=== PATIENT | male | born 1990 | race Caucasian/White ===

== ENCOUNTER 2017-04-30 10:52 | Emergency (ER) | payer BC ==
[~2017-04-30] VITALS: Ht 175.3 cm; Wt 81.6 kg
--- NOTE | 2017-04-30 10:55 | Emergency Room Report ---
History of Present Illness Time Seen by [id number] Presenting Problem in Triage Pt arrived:Walked Presenting Problem:PT REPORTS PAIN AND SWELLING IN L THUMB X2 DAYS, REPORTS INJURY WHILE PLAYING BASEBALL. 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 N Clinical Suspician of Infection? N Mental Status: 1 - Regular (Normal Baseline) Sepsis Risk:Low Sepsis Risk Have you (or family members/close friends) recently traveled outside the [place]? N If Yes, where/when: Have you had exposure to infectious disease within the past month? N TB? Other? Specify: Source patient, RN notes reviewed Exam Limitations no limitations Comment Pt hurt left thumb 2 days ago playing baseball. ALLERGIES Coded Allergies: No Known Allergies (07/23/16) Home Medications Reported Medications No Known Home Medications History Medical History General CAD? No Angina: No [place]: No Hypertension? No Hyperlipidemia? No CHF? No DVT? No PE? No COPD? No Asthma? No Anemia? No GERD? No Gastric ulcers? No GI Bleed? No Hernia? No Thyroid Problems? No Hypothyroidism? No CVA? No Seizures? No Diabetes? No Renal Insuffiency? No End Stage Renal Disease? No UTI? No Stones? No BPH? No GB Disease: No Nephritic Syndrome? No Asplenia? No Hepatitis? No Sickle Cell Disease? No Arthritis? No Migraines? No Cataracts? No Glaucoma? No MRSA? No HIV? No TB? No Anxiety? No Depression? No Cancer? No More? No Immunization Hx DT/Tetanus 1-4 YRS Surgical Hx Previous Surgery?Y VENTRICULAR SHUNT Social History Smoking Hx Packs/day < 1 Pack Alcohol Alcohol: No Review of Systems All Other Systems Reviewed and Negative Musculoskeletal see HPI Physical Exam Vital Signs Vital Signs Date Time Temp Pulse Resp B/P Pulse O2 O2 Flow FiO2 Ox Delivery Rate 04/30 1059 98.1 86 18 132/82 99 General Appearance normal appearance, WD/WN, no apparent distress Respiratory Status No: respiratory distress. Lung Sounds bilateral: normal breath sounds. 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 Yes Keny was queried for this patient? Yes Reference #: [id number] Risks/benefits of using a controlled substance for treatment were not discussed w/pt Results/Orders Orders Procedure Date/time Status [id number] (THUMB)-3 VIEWS 04/30 1107 Active XRAY/CT/US XRAY/CT/US XRAY thumb XR interpretation by reviewed by me Xray Results fracture of distal phalanx Procedures Orthopedic/Inj/Splint Ortho Proc/Injections/Splints Risks/benefits discussed with pt/guardian? Yes IV conscious sedation No Procedural sedation none Reduction of other Location other (THumb fracture) Comment Thumb spica splint Post reduction xrays completed and anatomic No Pre-Made Type orthoglas Hand-Made Type orthoglass Splint thumb spica Pre-Proc Neuro Vasc Exam normal Post-Proc Neuro Vasc Exam normal Complications none Departure Departure Time of Disposition 1154 Disposition DC Home or Self Care(routine) Clinical Impression Primary Impression: Fracture of distal phalanx of thumb Qualifiers: Encounter type: initial encounter Fracture type: closed Fracture alignment: nondisplaced Laterality: left Qualified Code: S62.525A - Nondisplaced fracture of distal phalanx of left thumb, initial encounter for closed fracture Condition STABLE Referrals BARBARA CLEMENT, VIVIEN HACKETT Additional Instructions Followup with Dr. Almanza in 2 to 3 days to re-evaluate Discharge Counseling Counseled pt/family regarding diagnosis, test results, medications/RX, home care, follow up needs Prescriptions Current Visit Scripts HYDROCODONE 5MG/APAP 325MG (Hydrocodon-Acetaminophen 5-325) 1 TAB PO Q4HP PRN pain #18 TAB ED Critical Care Critical Care No If Critical Care minutes are documented, the time involved in the performance of seperately reportable procedures was not counted toward critical care time documented. I directly delivered medical care to this critically ill and/or injured patient. Timely evaluation and treatment was necessary to address the significant organ system(s) dysfunction present in this patient. at 1156
--- NOTE | 2017-04-30 10:55 | Emergency Room Report ---
History of Present Illness Time Seen by 1054 Presenting Problem in Triage Pt arrived:Walked Presenting Problem:PT REPORTS PAIN AND SWELLING IN L THUMB X2 DAYS, REPORTS INJURY WHILE PLAYING BASEBALL. 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 N Clinical Suspician of Infection? N Mental Status: 1 - Regular (Normal Baseline) Sepsis Risk:Low Sepsis Risk Have you (or family members/close friends) recently traveled outside the [place]? N If Yes, where/when: Have you had exposure to infectious disease within the past month? N TB? Other? Specify: Source patient, RN notes reviewed Exam Limitations no limitations Comment Pt hurt left thumb 2 days ago playing baseball. ALLERGIES Coded Allergies: No Known Allergies (07/23/16) Home Medications Reported Medications No Known Home Medications History Medical History General CAD? No Angina: No [place]: No Hypertension? No Hyperlipidemia? No CHF? No DVT? No PE? No COPD? No Asthma? No Anemia? No GERD? No Gastric ulcers? No GI Bleed? No Hernia? No Thyroid Problems? No Hypothyroidism? No CVA? No Seizures? No Diabetes? No Renal Insuffiency? No End Stage Renal Disease? No UTI? No Stones? No BPH? No GB Disease: No Nephritic Syndrome? No Asplenia? No Hepatitis? No Sickle Cell Disease? No Arthritis? No Migraines? No Cataracts? No Glaucoma? No MRSA? No HIV? No TB? No Anxiety? No Depression? No Cancer? No More? No Immunization Hx DT/Tetanus 1-4 YRS Surgical Hx Previous Surgery?Y VENTRICULAR SHUNT Social History Smoking Hx Packs/day < 1 Pack Alcohol Alcohol: No Review of Systems All Other Systems Reviewed and Negative Musculoskeletal see HPI Physical Exam Vital Signs Vital Signs Date Time Temp Pulse Resp B/P Pulse O2 O2 Flow FiO2 Ox Delivery Rate 04/30 1059 98.1 86 18 132/82 99 General Appearance normal appearance, WD/WN, no apparent distress Respiratory Status No: respiratory distress. Lung Sounds bilateral: normal breath sounds. 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 Yes Keny was queried for this patient? Yes Reference #: [id number] Risks/benefits of using a controlled substance for treatment were not discussed w/pt Results/Orders Orders Procedure Date/time Status [id number] (THUMB)-3 VIEWS 04/30 1107 Active XRAY/CT/US XRAY/CT/US XRAY thumb XR interpretation by reviewed by me Xray Results fracture of distal phalanx Procedures Orthopedic/Inj/Splint Ortho Proc/Injections/Splints Risks/benefits discussed with pt/guardian? Yes IV conscious sedation No Procedural sedation none Reduction of other Location other (THumb fracture) Comment Thumb spica splint Post reduction xrays completed and anatomic No Pre-Made Type orthoglas Hand-Made Type orthoglass Splint thumb spica Pre-Proc Neuro Vasc Exam normal Post-Proc Neuro Vasc Exam normal Complications none Departure Departure Time of Disposition 1154 Disposition DC Home or Self Care(routine) Clinical Impression Primary Impression: Fracture of distal phalanx of thumb Qualifiers: Encounter type: initial encounter Fracture type: closed Fracture alignment: nondisplaced Laterality: left Qualified Code: S62.525A - Nondisplaced fracture of distal phalanx of left thumb, initial encounter for closed fracture Condition STABLE Referrals BARBARA CLEMENT, VIVIEN HACKETT Additional Instructions Followup with Dr. Almanza in 2 to 3 days to re-evaluate Discharge Counseling Counseled pt/family regarding diagnosis, test results, medications/RX, home care, follow up needs Prescriptions Current Visit Scripts HYDROCODONE 5MG/APAP 325MG (Hydrocodon-Acetaminophen 5-325) 1 TAB PO Q4HP PRN pain #18 TAB ED Critical Care Critical Care No If Critical Care minutes are documented, the time involved in the performance of seperately reportable procedures was not counted toward critical care time documented. I directly delivered medical care to this critically ill and/or injured patient. Timely evaluation and treatment was necessary to address the significant organ system(s) dysfunction present in this patient. at 1156
[2017-04-30 12:01] VITALS: BP 128/80
--- NOTE | 2017-04-30 14:47 | RADIOLOGY REPORT PS360 ---
[id number] (THUMB)-3 VIEWS HISTORY: INJURY 2 DAYS AGO, PAIN, SWELLING jammed finger playing baseball pain distal finger Patient Age: 26 years: Male Ordering Physician: Roya Plaza MD TECHNIQUE: 3 views left thumb COMPARISON :None FINDINGS Lateral view nicely demonstrates the longitudinal fracture extending through articular cortex/surface here at the base of distal phalanx.... This Nondisplaced fracture extends to the IP joint of thumb but would there is no cortical step-off appreciated. The fracture and not really apparent on the frontal view nor oblique view but is clearly evident & seen on lateral view of thumb. There is diffuse soft tissue swelling at the left lung. Proximal phalanx unremarkable. First metacarpal unremarkable. IMPRESSION: -= 1. Nondisplaced fracture at base of distal phalanx, with articular extension. Left thumb . On today's lateral view this nondisplaced longitudinal fracture line clearly seen, passing through the mid articular cortex at base of distal phalanx thumb. It likely extends obliquely through the proximal metaphysis.
--- OUTSIDE RECORDS SUMMARY | 2017-05-10 21:14 | External Medical Summary Rpt ---
Author Author , DANICA MISHRA Address Unknown Phone [email or web address] Care Team Providers Care Deputy Building Guard Name Role Phone [employer], Unavailable Unavailable [employer] [facility] Unavailable Unavailable IM[facility]ING [facility], [facility] [employer], Unavailable Unavailable [facility] [employer] [facility], [employer] [facility], Unavailable Unavailable [facility] Unavailable Unavailable [facility], [facility] Unavailable Unavailable PHARMACY, [facility] BERNIE PADGETT, Unavailable Unavailable BERNIE PADGETT Purpose Continuity of Care Document - 10-22-2007 through 2016 Problems Code Diagnosis DOS Provider Status 3319 UNSPECIFIED 02-07-2012 [place] [facility] [place] [place] [place] N [address] OTHER 02-07-2012 [place] CONDITIONS [facility]ICAL OF BRAIN IM[facility]ING ASS 2590 DELAY IN 03-17-2008 [facility] PUB[facility] NEC 63985 SHORT 03-17-2008 [facility] STATURE [facility] V1581 PERS HX 03-17-2008 [place] [facility]PL[facility] CE W/MED TX ENDOCRINOLO PRS [facility] Medications Na ND Rx Da Fi Fi Am Da Di Ph RX Ph St me C No te ll ll ou ys ag ar # ys at rm s nt no ma ic us Or Da si cy ia de te s n re d LE 00 01 10 07 30 30 WA 69 FO Ac VO 37 -1 -0 .0 L- 56 ST ti TH 81 1- 9- 00 MA 26 ER ve YR 80 20 20 RT 5 OX 70 08 08 MT IN 1 PH CH E AR AE 88 MA L CY MC G #5 TA 91 BL ET GE 00 03 10 05 10 30 WA 13 FO Ac NO 01 -0 -[address] ti TR 32 5- 9- 00 RE 9 ER ve OP 64 20 20 EN IN 68 08 08 S MT 1 IN CH 12 FU AE SI L MG ON B CA PH RT AR RI MA DG CY E LE 00 01 08 06 30 30 WA 69 FO Ac VO 37 -1 -2 .0 L- 56 ST ti TH 81 1- 8- 00 MA 26 ER ve YR 80 20 20 RT 5 OX 70 08 08 MT IN 1 PH CH E AR AE 88 MA L CY MC G #5 TA 91 BL ET GE 00 03 08 04 10 30 WA 13 FO Ac NO 01 -0 -[address] ti TR 32 5- 8- 00 RE 9 ER ve OP 64 20 20 EN IN 68 08 08 S MT 1 IN CH 12 FU AE SI L MG ON B CA PH RT AR RI MA DG CY E LE 00 01 08 05 30 30 WA 69 FO Ac VO 37 -1 -0 .0 L- 56 ST ti TH 81 1- 1- 00 MA 26 ER ve YR 80 20 20 RT 5 OX 70 08 08 MT IN 1 PH CH E AR AE 88 MA L CY MC G #5 TA 91 BL ET GE 00 03 07 03 10 30 WA 13 FO Ac NO 01 -0 -[address] ti TR 32 5- 7- 00 RE 9 ER ve OP 64 20 20 EN IN 68 08 08 S MT 1 IN CH 12 FU AE SI L MG ON B CA PH RT AR RI MA DG CY E LE 00 01 07 04 30 30 WA 69 No Ac VO 37 -1 -0 .0 L- 56 t ti TH 81 1- 3- 00 MA 26 Av ve YR 80 20 20 RT 5 ai OX 70 08 08 la IN 1 PH bl E AR e 88 MA CY MC G #5 TA 91 BL ET GE 00 03 06 02 10 30 WA 13 FO Ac NO 01 -0 -[address] ti TR 32 5- 5- 00 RE 9 ER ve OP 64 20 20 EN IN 68 08 08 S MT 1 IN CH 12 FU AE SI L MG ON B CA PH RT AR RI MA DG CY E LE 00 01 05 03 30 30 WA 69 No Ac VO 37 -1 -2 .0 L- 56 t ti TH 81 1- 2- 00 MA 26 Av ve YR 80 20 20 RT 5 ai OX 70 08 08 la IN 1 PH bl E AR e 88 MA CY MC G #5 TA 91 BL ET GE 00 03 04 01 10 30 WA 13 No Ac NO 01 -0 -2 .0 LG 02 t ti TR 32 5- 4- 00 RE 9 Av ve OP 64 20 20 EN ai IN 68 08 08 S la 1 IN bl 12 FU e SI MG ON CA PH RT AR RI MA DG CY E GE 00 03 04 00 10 30 WA 13 No Ac NO 01 -0 -1 .0 LG 02 t ti TR 32 5- 7- 00 RE 9 Av ve OP 64 20 20 EN ai IN 68 08 08 S la 1 IN bl 12 FU e SI MG ON CA PH RT AR RI MA DG CY E LE 00 01 04 02 30 30 WA 69 No Ac VO 37 -1 -1 .0 L- 56 t ti TH 81 1- 0- 00 MA 26 Av ve YR 80 20 20 RT 5 ai OX 70 08 08 la IN 1 PH bl E AR e 88 MA CY MC G #5 TA 91 BL ET LE 00 01 04 01 30 30 WA 69 No Ac VO 37 -1 -0 .0 L- 56 t ti TH 81 1- 7- 00 MA 26 Av ve YR 80 20 20 RT 5 ai OX 70 08 08 la IN 1 PH bl E AR e 88 MA CY MC G #5 TA 91 BL ET LE 00 01 03 00 30 30 WA 69 No Ac VO 37 -1 -2 .0 L- 56 t ti TH 81 1- 5- 00 MA 26 Av ve YR 80 20 20 RT 5 ai OX 70 08 08 la IN 1 PH bl E AR e 88 MA CY MC G #5 TA 91 BL ET GE 00 08 03 03 9. 30 CA 10 No Ac NO 01 -2 -2 00 RE 10 t ti TR 32 7- 4- 0 MA 03 Av ve OP 64 20 20 RK 6 ai IN 68 07 08 la 1 IN bl 12 C e IN MG C CA RT RI DG E Procedures Procedure DOS Code Location Performer Comment 3D 73152 [facility] RENDERING 2 MEDICAL MEDICAL W/INTERP IMAGING IMAGING & ASS ASS POSTPROCE SS SUPERVISI ON IMMUNOASS 31791 [facility] [place] [address] [facility] OF LABONE OF FREE 8 [facility] [place] [address] LABONE OF LABONE OF THYROID 8 [facility] [place] [address] [facility] 8 DIAGNOSTI DIAGNOSTI IN CS IN CS IN Encounters Encounter Start End Date Code Location Performer Type Date OFFICE 00267 [facility] LEANN PADGETT 8 8 Y BERNIE Ordoñez VISIT PEDIATRIC 15 MINUTES [facility]
--- OUTSIDE RECORDS SUMMARY | 2017-05-10 21:14 | External Medical Summary Rpt ---
Author Author , DANICA MCGILLJETHRO Address Unknown Phone [email or web address] Care Team Providers Care Thread Laster Name Role Phone [employer], Unavailable Unavailable [employer] [facility] Unavailable Unavailable IM[facility]ING [facility], [facility] [employer] [facility], Unavailable Unavailable [facility] [employer] [facility] Un[facility] Unavailable [facility], [facility], Unavailable Unavailable [facility]available Unavailable #591, [facility] Unavailable Unavailable PHARMACY, [facility] BERNIE PADGETT, Unavailable Unavailable BERNIE PADGETT Purpose Continuity of Care Document - 10-22-2007 through 2016 Problems Code Diagnosis DOS Provider Status 3319 UNSPECIFIED 02-07-2012 [facility] [facility] DEGENERATIO IMAGING ASS N 46156 OTHER 02-07-2012 [place] [facility] OF BRAIN IMAGING ASS 2590 DELAY IN 03-17-2008 [facility] AND PUBERTY NEC 70095 SHORT 03-17-2008 [facility] V1581 PERS HX 03-17-2008 [place] [facility] CE W/MED TX ENDOCRINOLO PRS [...] 20 RT 5 OX 70 08 08 ME IN 1 PH CH E AR AE 88 MA L CY MC G #5 TA 91 BL ET GE 00 03 10 05 10 30 WA 13 FO Ac NO 01 -0 -[address] ti TR 32 5- 9- 00 RE 9 ER ve OP 64 20 20 EN IN 68 08 08 S ME 1 IN CH 12 FU AE SI L MG ON B CA PH RT AR RI MA DG CY E GE 00 03 08 04 10 30 WA 13 FO Ac NO 01 -0 -[address] ti TR 32 5- 8- 00 RE 9 ER ve OP 64 20 20 EN IN 68 08 08 S ME 1 IN CH 12 FU AE SI L MG ON B CA PH RT AR RI MA DG CY E LE 00 01 08 06 30 30 WA 69 FO Ac VO 37 -1 -2 .0 L- 56 ST ti TH 81 1- 8- 00 MA 26 ER ve YR 80 20 20 RT 5 OX 70 08 08 ME IN 1 PH CH E AR AE 88 MA L CY MC G #5 TA 91 BL ET LE 00 01 08 05 30 30 WA 69 FO Ac VO 37 -1 -0 .0 L- 56 ST ti TH 81 1- 1- 00 MA 26 ER ve YR 80 20 20 RT 5 OX 70 08 08 ME IN 1 PH CH E AR AE 88 MA L CY MC G #5 TA 91 BL ET GE 00 03 07 03 10 30 WA 13 FO Ac NO 01 -0 -[address] ti TR 32 5- 7- 00 RE 9 ER ve OP 64 20 20 EN IN 68 08 08 S ME 1 IN CH 12 FU AE SI [...] 20 EN IN 68 08 08 S ME 1 IN CH 12 FU AE SI [...] Procedure DOS Code Location Performer Comment 3D [address] [facility] 2 MEDICAL MEDICAL W/INTERP IMAGING IMAGING & ASS [place] [address] [facility] 8 DIAGNOSTI DIAGNOSTI IN CS IN CS IN IMMUNOASS 14719 [facility] 8 [facility] [place] [address] [facility] OF [facility] OF FREE 8 [facility] [place] [address] LAB[facility] OF LABONE OF THYROID 8 [facility] STIMULATI NG HORMONE TSH Encounters Encounter Start End Date Code Location Performer Type Date OFFICE 14959 [facility] 8 8 Y BERNIE Ordoñez VISIT PEDIATRIC 15 MINUTES [facility]
--- OUTSIDE RECORDS SUMMARY | 2017-05-10 21:14 | External Medical Summary Rpt ---
Author Author , DANICA MISHRA Address Unknown Phone [email or web address] Care Team Providers Care Train Caller Name Role Phone [employer], Unavailable Unavailable [employer] [facility] Unavailable Unavailable IM[facility]ING [facility], [facility] [employer], Unavailable Unavailable [facility] [employer] [facility] Unavailable Unavailable [facility], [facility], Unavailable Unavailable [facility]available Unavailable #591, [facility] Unavailable Unavailable PHARMACY, [facility] BERNIE PADGETT, Unavailable Unavailable BERNIE PADGETT Purpose Continuity of Care Document - 10-22-2007 through 2016 Problems Code Diagnosis DOS Provider Status 3319 UNSPECIFIED 02-07-2012 [place] [facility] DEGENERATIO IMAGING ASS N 64939 OTHER 02-07-2012 [place] CONDITIONS [facility] OF BRAIN IMAGING ASS 2590 DELAY IN 03-17-2008 [facility] AND PUBERTY NEC 23252 SHORT 03-17-2008 [facility] V1581 PERS HX 03-17-2008 [place] NONCOMPLIAN PEDIATRIC CE W/MED TX ENDOCRINOLO PRS [...] 20 RT 5 OX 70 08 08 NH IN 1 PH CH E AR AE 88 MA L CY MC G #5 TA 91 BL ET GE 00 03 10 05 10 30 WA 13 FO Ac NO 01 -0 -[address] ti TR 32 5- 9- 00 RE 9 ER ve OP 64 20 20 EN IN 68 08 08 S NH 1 IN CH 12 FU AE SI L MG ON B CA PH RT AR RI MA DG CY E LE 00 01 08 06 30 30 WA 69 FO Ac VO 37 -1 -2 .0 L- 56 ST ti TH 81 1- 8- 00 MA 26 ER ve YR 80 20 20 RT 5 OX 70 08 08 NH IN 1 PH CH E AR AE 88 MA L CY MC G #5 TA 91 BL ET GE 00 03 08 04 10 30 WA 13 FO Ac NO 01 -0 -[address] ti TR 32 5- 8- 00 RE 9 ER ve OP 64 20 20 EN IN 68 08 08 S NH 1 IN CH 12 FU AE SI L MG ON B CA PH RT AR RI MA DG CY E LE 00 01 08 05 30 30 WA 69 FO Ac VO 37 -1 -0 .0 L- 56 ST ti TH 81 1- 1- 00 MA 26 ER ve YR 80 20 20 RT 5 OX 70 08 08 NH IN 1 PH CH E AR AE 88 MA L CY MC G #5 TA 91 BL ET GE 00 03 07 03 10 30 WA 13 FO Ac NO 01 -0 -[address] ti TR 32 5- 7- 00 RE 9 ER ve OP 64 20 20 EN IN 68 08 08 S NH 1 IN CH 12 FU AE SI [...] 20 EN IN 68 08 08 S NH 1 IN CH 12 FU AE SI [...] Procedure DOS Code Location Performer Comment 3D 12723 [facility] RENDERING 2 MEDICAL MEDICAL W/INTERP IMAGING IMAGING & ASS ASS POSTPROCE SS SUPERVISI ON IMMUNOASS 73778 [facility] 8 [facility] [place] [address] [facility] FREE 8 [facility] [address] LAB[facility] OF LABONE OF THYROID 8 [facility] [place] [address] [facility] 8 DIAGNOSTI DIAGNOSTI IN CS IN CS IN Encounters Encounter Start End Date Code Location Performer Type Date OFFICE 106[address] [facility] LEANN PADGETT 8 8 Y BERNIE Ordoñez VISIT PEDIATRIC 15 MINUTES [facility]
--- OUTSIDE RECORDS SUMMARY | 2017-05-10 21:14 | External Medical Summary Rpt ---
Author Author , DANICA MCGILLJETHRO Address Unknown Phone [email or web address] Care Team Providers Care Companion Caregiver Name Role Phone [employer], Unavailable Unavailable [employer] [facility] Unavailable Unavailable IM[facility]ING [facility], [facility] [employer], Unavailable Unavailable [facility] [employer] [facility] Unavailable Unavailable [facility], [facility], Unavailable Unavailable [facility] Unavailable Unavailable #591, [facility] Unavailable Unavailable PHARMACY, [facility] BERNIE PADGETT, Unavailable Unavailable BERNIE PADGETT Purpose Continuity of Care Document - 10-22-2007 through 2016 Problems Code Diagnosis DOS Provider Status 3319 UNSPECIFIED 02-07-2012 [place] [facility] DEGENERATIO IMAGING ASS N 73080 OTHER 02-07-2012 [place] CONDITIONS [facility]ICAL OF BRAIN IMAGING ASS 2590 DELAY IN 03-17-2008 [facility] AND PUBERTY NEC 48273 SHORT 03-17-2008 [facility] V1581 PERS HX 03-17-2008 [place] NONCOMPLIAN PEDIATRIC CE W/MED TX ENDOCRINOLO PRS [...] 20 RT 5 OX 70 08 08 DC IN 1 PH CH E AR AE 88 MA L CY MC G #5 TA 91 BL ET GE 00 03 10 05 10 30 WA 13 FO Ac NO 01 -0 -[address] ti TR 32 5- 9- 00 RE 9 ER ve OP 64 20 20 EN IN 68 08 08 S DC 1 IN CH 12 FU AE SI L MG ON B CA PH RT AR RI MA DG CY E GE 00 03 08 04 10 30 WA 13 FO Ac NO 01 -0 -[address] ti TR 32 5- 8- 00 RE 9 ER ve OP 64 20 20 EN IN 68 08 08 S DC 1 IN CH 12 FU AE SI L MG ON B CA PH RT AR RI MA DG CY E LE 00 01 08 06 30 30 WA 69 FO Ac VO 37 -1 -2 .0 L- 56 ST ti TH 81 1- 8- 00 MA 26 ER ve YR 80 20 20 RT 5 OX 70 08 08 DC IN 1 PH CH E AR AE 88 MA L CY MC G #5 TA 91 BL ET LE 00 01 08 05 30 30 WA 69 FO Ac VO 37 -1 -0 .0 L- 56 ST ti TH 81 1- 1- 00 MA 26 ER ve YR 80 20 20 RT 5 OX 70 08 08 DC IN 1 PH CH E AR AE 88 MA L CY MC G #5 TA 91 BL ET GE 00 03 07 03 10 30 WA 13 FO Ac NO 01 -0 -[address] ti TR 32 5- 7- 00 RE 9 ER ve OP 64 20 20 EN IN 68 08 08 S DC 1 IN CH 12 FU AE SI [...] 20 EN IN 68 08 08 S DC 1 IN CH 12 FU AE SI [...] Procedure DOS Code Location Performer Comment 3D 85866 [facility] 2 MEDICAL MEDICAL W/INTERP IMAGING IMAGING & ASS [place] [address] [facility] 8 DIAGNOSTI DIAGNOSTI IN CS IN CS IN IMMUNOASS 97520 [facility] 8 [facility] [place] [address] [facility] OF [facility] OF FREE 8 [facility] [place] [address] LAB[facility] OF [facility]ONE OF THYROID 8 [facility] STIMULATI NG HORMONE TSH Encounters Encounter Start End Date Code Location Performer Type Date [facility]ICE 6[address]20 [facility] 8 Y BERNIE Ordoñez VISIT PEDIATRIC 15 MINUTES [facility]
--- OUTSIDE RECORDS SUMMARY | 2017-05-10 21:15 | External Medical Summary Rpt ---
Demographics Preferred Language Jordanian Marital Status Unknown Scientologist Affiliation Unknown Race Unknown Ethnic Group Unknown Author Author DANICA Address Unknown Phone Immunization No patient found.
--- OUTSIDE RECORDS SUMMARY | 2017-05-10 21:15 | External Medical Summary Rpt ---
Demographics Preferred Language [place] Marital Status Unknown Worship Affiliation Unknown Race Unknown Ethnic Group Unknown Author Author DAN[facility] Address Unknown Phone Immunization No patient found.
--- OUTSIDE RECORDS SUMMARY | 2017-05-10 21:15 | External Medical Summary Rpt ---
Author Author DANICA Davies, [employer] Organization [employer] Address Unknown Phone Unavailable
== END 2017-04-30 12:03 | disposition home or self-care (01) ==
LOC: ER 10:52
PROC: 2W3DX1Z Immobilization of Left Lower Arm using Splint (ICD-10-PCS; principal; 2017-04-30)
DX: S62.525A Nondisplaced fracture of distal phalanx of left thumb, initial encounter for closed fracture (principal); W21.03XA Struck by baseball, initial encounter; Y93.64 Activity, baseball; Y92.89 Other specified places as the place of occurrence of the external cause

== ENCOUNTER → 2017-05-24 | Outpatient (CLI) | payer MEDICAID ==
[~2017-05-24] MED LIST: BACTRIM 400 MG-1 TAB PO; FLEXERIL10 MG PO; HYDROCODONE-APA1 TA1 PO; MOTRIN800 MG PO; NOMEDS *; PREDNISONE 10MG10 MG PO
--- NOTE | 2017-05-24 15:17 | RADIOLOGY REPORT PS360 ---
[id number] (THUMB)-3 VIEWS CLINICAL INDICATION: Follow-up fracture LEFT THUMB FX ORDERING PHYSICIAN: VIVIEN JIMENEZ MD PATIENT AGE: 26 years COMPARISON: 04/30/2017 FINDINGS: Longitudinal fracture involves the proximal aspect of the distal phalanx with intra-articular extension as before not significant change. IMPRESSION: No change nondisplaced fracture proximal aspect of the distal phalanx
== END ==
LOC: RAD 13:50
DX: S62.525A Nondisplaced fracture of distal phalanx of left thumb, initial encounter for closed fracture (principal)

== ENCOUNTER → 2017-06-16 | Outpatient (CLI) | payer MEDICAID ==
--- NOTE | 2017-06-17 12:30 | RADIOLOGY REPORT PS360 ---
[id number] (THUMB)-3 VIEWS HISTORY: FX LT THUMB3 views follow-up Patient Age: 26 years: Male Ordering Physician: VIVIEN JIMENEZ MD TECHNIQUE: 3 views left thumb COMPARISON : 05/24/2017 04/30/2017 FINDINGS Fracture base of distal phalanx extends through the articular surface at the base of the distal phalanx as best seen on lateral projection.. Nondisplaced fracture. Likely pass into the anterior corner of the base distal phalanx.. The fracture line slight less evident and there with suggestion of very early healing. IMPRESSION: No appreciable change in position of Fracture base distal phalanx thumb. Articular extension.. Suggestion of early healing
== END ==
LOC: RAD 13:40
DX: S62.525A Nondisplaced fracture of distal phalanx of left thumb, initial encounter for closed fracture (principal)